=== PATIENT | female | born 1940 | race Caucasian/White ===

== ENCOUNTER 2017-11-27 22:03 | Inpatient (IN) | payer OTHER ==
[~2017-11-27] VITALS: Ht 170.2 cm; Wt 69.1 kg
[~2017-11-27 22:03] MED LIST: BYSTOLIC2.5 MG PO; CALCIUM 500-VI1 EACH PO; DIOVAN160 MG PO; IRON325 M1 PO; LITE COAT ASPI325 M1 PO; MAGNESIUM 300300 MG PO; MOTRIN IB200 MG PO; VITAMIN D31000 UNIT PO
[2017-11-28 07:55] VITALS: BP 140/69
[2017-11-28 13:29] VITALS: BP 155/67
[2017-11-28 15:46] VITALS: BP 126/60
[2017-11-28 20:06] VITALS: BP 140/71
[2017-11-29 00:08] VITALS: BP 115/60
[2017-11-29 04:15] VITALS: BP 108/51
[2017-11-29 05:36] LABS: HEMATOCRIT 40.4 % (36.0-46.0); HEMOGLOBIN 13.7 G/DL (11.9-15.5); MCV 89.2 FL (83-99)
[2017-11-29 05:44] LABS: CHLORIDE 103 MEQ/L (99-109); CREATININE 0.8 MG/DL (0.6-1.3); GFR ESTIMATE (CALCULATED) > 59 mL/min/; GLUCOSE 118 mg/dL (70-99); POTASSIUM 5.1 MEQ/L (3.7-5.4); SODIUM 136 MEQ/L (136-147); UREA NITROGEN (BUN) 12 mg/dL (9-23)
[2017-11-29 08:09] VITALS: BP 122/58
[2017-11-29] MEDS ORDERED: TRAMADOL HCL50 MG PO (08:24)
[2017-11-29] MEDS ORDERED: CELECOXIB200 MG PO (08:24)
[2017-11-29] MEDS ORDERED: ELIQUIS2.5 MG PO (08:24)
[2017-11-29 11:53] VITALS: BP 139/60
[2017-11-29 15:31] VITALS: BP 117/52
[2017-11-29 20:26] VITALS: BP 127/60
[2017-11-30 00:09] VITALS: BP 114/54
[2017-11-30 04:12] VITALS: BP 109/58
[2017-11-30 06:04] LABS: HEMOGLOBIN 12.9 G/DL (11.9-15.5); MCV 87.4 FL (83-99)
[2017-11-30 08:32] VITALS: BP 109/54
[2017-11-30] MEDS ORDERED: OXYCODONE HCL5 MG PO (11:09)
[2017-11-30 11:51] VITALS: BP 132/60
== END 2017-11-30 14:45 | DRG 470 ==
LOC: ENRESERV 22:03 → 2SOUTH 11-28 06:48 → 3WEST 11-28 06:48 → 2SOUTH 11-28 14:46 → 3WEST 11-30 14:45
PROVIDERS: Orthopaedic Surgery
PROC: 0SRC0J9 Replacement of Right Knee Joint with Synthetic Substitute, Cemented, Open Approach (ICD-10-PCS; principal; 2017-11-28)
DX: M17.11 Unilateral primary osteoarthritis, right knee (principal); M25.561 Pain in right knee; R10.9 Unspecified abdominal pain; I10 Essential (primary) hypertension; E78.00 Pure hypercholesterolemia, unspecified; J45.909 Unspecified asthma, uncomplicated; M85.80 Other specified disorders of bone density and structure, unspecified site; Z86.711 Personal history of pulmonary embolism; Z79.82 Long term (current) use of aspirin
CPT/HCPCS: 80048; 85014; 85018; C1713; J0690; J1170; J1885; J2405; J2795; J3010; J7050